=== PATIENT | male | born 1980 | race American Indian/Alaskan Native ===

== ENCOUNTER 2020-01-10 03:33 | Emergency (ER) | payer BC, OTHER ==
[2020-01-10] MEDS ORDERED: ceFAZolin/NS 1 GM/50 ML 1 GM/50 ML BAG IV ONE (04:23)
[2020-01-10] MEDS ORDERED: TETANUS,DIPH,PERTUSS(ACELL) VACCINE 0.5 ML SYRINGE IM ONE (04:23)
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
[2020-01-10 05:44] LABS: Basophils # (Auto) 0.1 K/mm3 (0.0-0.1); Basophils % (Auto) 0.5 % (0.0-1.8); Eosinophils % (Auto) 0.1 % (0.0-4.3); Hematocrit 47.4 % (35.5-45.6); Hemoglobin 15.9 gm/dl (11.8-15.2); Lymphocytes % (Auto) 10.2 % (13.4-35.0); Mean Corpuscular HGB Conc 34 % (32-34); Mean Corpuscular Volume 92 fl (84-94); Monocytes # (Auto) 1.4 K/mm3 (0.0-0.8); Monocytes % (Auto) 7.3 % (0.0-7.3); Platelet Count 198 K/mm3 (140-440); Red Blood Count 5.13 M/mm3 (3.65-5.03); Red Cell Distribution Width 14.1 % (13.2-15.2)
[2020-01-10 05:55] LABS: INR 1.11 (0.87-1.13); Partial Thromboplastin Time 27.5 Sec. (24.2-36.6)
[2020-01-10 06:00] LABS: BUN/Creatinine Ratio 18; Blood Urea Nitrogen 14 mg/dL (9-20); Calcium 9.2 mg/dL (8.4-10.2); Hemolysis Index 110
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
[2020-01-10 06:09] LABS: Alanine Aminotransferase 26 units/L (7-56)
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
--- NOTE | 2020-01-10 06:44 | XRay Report ---
CHEST WITH RIGHT RIBS 4 VIEWS 0544 INDICATION: right rib pain, fall through glass COMPARISON: None available. FINDINGS: Study was difficult due to the patient's condition. Lung phillips appear clear. No mediastina l widening is seen. No pneumothorax is noted. Heart size appears within normal limits. No fractures a re seen. LEFT HUMERUS 2 VIEWS 0537 INDICATION: right rib pain, fall through glass COMPARISON: None available. FINDINGS: No fractures or dislocations are seen. Artifact overlies one image. There probably is a lac eration posteriorly in the mid arm. No obvious foreign bodies are identified. LEFT HAND 3 VIEWS 0550 INDICATION: right rib pain, fall through glass COMPARISON: None available. FINDINGS: Metal pancreas overlie the wrist. Lucency projecting over the neck of the second metacarpal on the oblique lateral view appears to be artifactual. No fractures or dislocations are seen. Mild a rthritic changes are noted in the interphalangeal joint of the thumb. RIGHT HAND 3 VIEWS 0553 INDICATION: right rib pain, fall through glass COMPARISON: None available. FINDINGS: Artifact overlies the images including pancreas on the wrist. Probable old fracture of the fifth metacarpal is noted. No acute fractures or dislocations are seen. IMPRESSION: No obvious acute abnormalities are seen Signer Name: Gigi Ortiz MD Signed: 01/10/2020 6:40 AM Workstation Name: [id number] [facility]
[2020-01-10] MEDS ORDERED: LIDOCAINE 1%/EPINEPHRINE 1:100,000 VIAL (20 ML) INFILTRATI NR (07:29)
[2020-01-10] MEDS ORDERED: SODIUM CHLORIDE 0.9% IRR 500 ML BOTTLE IR ONE (07:29)
[2020-01-10] MEDS ORDERED: LIDOCAINE (1%) 10 MG/1 ML VIAL 20 ML MDV INFILTRATI ONE (07:29)
[2020-01-10] MEDS ORDERED: LIDOCAINE 1%/EPINEPHRINE 1:100,000 VIAL (20 ML) INFILTRATI ONE (07:29)
[2020-01-10] MEDS ORDERED: LIDOCAINE (1%) 10 MG/1 ML VIAL 20 ML MDV ONE (07:37)
[2020-01-10 07:44] LABS: Amphetamine Screen,Urine PRESUMPTIVE NEGATIVE; Benzodiazepines Screen,Urine PRESUMPTIVE NEGATIVE; Bilirubin,Urine NEG (Negative); Blood,Urine MOD (Negative); Cannabinoid Screen,Urine PRESUMPTIVE NEGATIVE; Cocaine Screen,Urine PRESUMPTIVE NEGATIVE; Color,Urine Yellow (Yellow); Methadone Screen,Urine PRESUMPTIVE NEGATIVE; Mucus,Urine FEW /HPF; Opiate Screen,Urine PRESUMPTIVE NEGATIVE; Urobilinogen,Urine < 2.0 mg/dL (<2.0)
[2020-01-10] MEDS ORDERED: SODIUM CHLORIDE IRRI 500 ML 500 ML IR ONE (08:37)
[2020-01-10 10:46] VITALS: BP 165/106
== END 2020-01-10 10:47 | disposition home or self-care (01) ==
LOC: ED 03:33
DX: S41.112A Laceration without foreign body of left upper arm, initial encounter (principal); S61.219A Laceration without foreign body of unspecified finger without damage to nail, initial encounter; S00.83XA Contusion of other part of head, initial encounter; F10.129 Alcohol abuse with intoxication, unspecified; I10 Essential (primary) hypertension; F17.200 Nicotine dependence, unspecified, uncomplicated; Z98.890 Other specified postprocedural states; Z79.1 Long term (current) use of non-steroidal anti-inflammatories (NSAID); Z79.899 Other long term (current) drug therapy; Z88.8 Allergy status to other drugs, medicaments and biological substances; W01.0XXA Fall on same level from slipping, tripping and stumbling without subsequent striking against object, initial encounter; Y93.89 Activity, other specified; Y92.89 Other specified places as the place of occurrence of the external cause; Y99.8 Other external cause status
CPT/HCPCS: 12005; 36415; 70460; 70486; 71101; 72125; 73060; 73130; 80053; 80307; 81001; 85025; 85610; 85730; 90471; 90715; 96365; 96375; 96376; 99285; J0690; 80320; G0480